=== PATIENT | male | born 1975 | race Caucasian/White ===

== ENCOUNTER 2023-02-11 07:08 | Day surgery (SDC) | payer MEDICAID ==
[2023-02-11] MEDS ORDERED: Propofol 200 MG/20 ML SDV ONE (07:10)
[2023-02-11] MEDS ORDERED: fentaNYL 100 MCG/2 ML SDV ONE (07:10)
[2023-02-11] MEDS ORDERED: Midazolam 1 MG/ML 2 ML SDV ONE (07:11)
[2023-02-11] MEDS ORDERED: Lactated Ringers 1,000 ML IV SCH (07:30)
== END 2023-02-11 09:15 | disposition home or self-care (01) ==
LOC: JP.SDS 07:08
PROVIDERS: ATTEND Student in an Organized Health Care Education/Training Program
DX: Z12.11 Encounter for screening for malignant neoplasm of colon (principal); K63.5 Polyp of colon; Z53.09 Procedure and treatment not carried out because of other contraindication; F32.A Depression, unspecified; Z86.711 Personal history of pulmonary embolism; Z80.0 Family history of malignant neoplasm of digestive organs
CPT/HCPCS: 45330; J2250; J2704; J3010; J7120

== ENCOUNTER 2023-02-12 08:40 | Day surgery (SDC) | payer MEDICAID ==
[2023-02-12] MEDS ORDERED: Midazolam 1 MG/ML 2 ML SDV ONE (08:45)
[2023-02-12] MEDS ORDERED: fentaNYL 50 MCG/ML SDV ONE (08:45)
[2023-02-12] MEDS ORDERED: Propofol 200 MG/20 ML SDV ONE (08:45)
[2023-02-12] MEDS ORDERED: Lactated Ringers 1,000 ML IV SCH (09:15)
== END 2023-02-12 11:15 | disposition home or self-care (01) ==
LOC: JP.SDS 08:40
PROVIDERS: ATTEND Family Medicine
DX: Z12.11 Encounter for screening for malignant neoplasm of colon (principal); K62.1 Rectal polyp
CPT/HCPCS: 45380; 88305; J2250; J2704; J3010; J7120